=== PATIENT | female | born 1985 | race Hispanic/Latino ===

== ENCOUNTER 2021-11-03 11:10 | Emergency (ER) | payer OTHER ==
[~2021-11-03] VITALS: Ht 160 cm; Wt 77.1 kg
[2021-11-03 11:15] VITALS: BP 126/84
[2021-11-03 11:41] LABS: APPEARANCE,URINE CLOUDY (CLEAR); BILIRUBIN,URINE NEGATIVE (NEGATIVE); COLOR,URINE LIGHT-YELLOW (YELLOW); GLUCOSE, URINE (UA) NEGATIVE (NEGATIVE); KETONES,URINE NEGATIVE (NEGATIVE); LEUKOCYTE ESTERASE ,URINE 500 Leu/uL (NEGATIVE); NITRATE,URINE NEGATIVE (NEGATIVE); OCCULT BLOOD,URINE NEGATIVE (NEGATIVE); PH,URINE 6.5 (5.0-8.0); PROTEIN,URINE NEGATIVE (NEGATIVE); UROBILINOGEN,URINE 0.2 mg/dL (0.2-1.0)
[2021-11-03 11:55] LABS: HCG,QUALITATIVE URINE NEGATIVE (NEGATIVE)
[2021-11-03 11:57] LABS: BACTERIA,URINE FEW /HPF (None Seen); MUCUS,URINE RARE LPF (None Seen); SQUAMOUS EPITHELIAL CELL,UR MANY /HPF (0-2); WBC,URINE 51-100 /HPF (0-1)
[2021-11-03] MEDS ORDERED: NAPR500T6 PO (12:56)
[2021-11-03] MEDS ORDERED: PRED20TA3 PO (12:56)
[2021-11-03] MEDS ORDERED: CYCL10TA16 PO (12:56)
[2021-11-03] MEDS ORDERED: CEPH500B PO (12:56)
[2021-11-03] MEDS ORDERED: PREDNISONE 20 MG TABLET PO ONE (13:00)
[2021-11-03] MEDS ORDERED: KETOROLAC 30MG VIAL (30MG/ML) IM ONE (13:00)
== END 2021-11-03 13:18 | disposition home or self-care (01) ==
LOC: EDH 11:10
DX: M54.42 Lumbago with sciatica, left side (principal); N39.0 Urinary tract infection, site not specified
CPT/HCPCS: 99283; 87088; 81001; 81025; 96372; J1885